=== PATIENT | female | born 2005 | race African-American/Black ===

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

== ENCOUNTER 2023-01-20 18:33 | Emergency (ER) | payer BC, SELFPAY ==
[2023-01-20 18:34] VITALS: BP 131/77; PULSE 72; RESP 16; TEMP 36.7; O2SAT 99; BMI 50.7
--- NOTE | 2023-01-20 19:22 | PC.NURSE ---
ER MD López at
[2023-01-20 19:26] VITALS: BP 128/70; PULSE 93; RESP 18; TEMP 36.7
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
== END 2023-01-20 19:44 | disposition home or self-care (01) ==
PROVIDERS: Emergency Provider Emergency Medicine; PCP Internal Medicine Adolescent Medicine
DX: R07.9 Chest pain, unspecified (principal); S16.1XXA Strain of muscle, fascia and tendon at neck level, initial encounter; M25.511 Pain in right shoulder; M25.512 Pain in left shoulder; G40.909 Epilepsy, unspecified, not intractable, without status epilepticus; V49.40XA Driver injured in collision with unspecified motor vehicles in traffic accident, initial encounter
CPT/HCPCS: 99283

== ENCOUNTER 2023-06-30 13:15 | Outpatient (RCR) | payer BC, SELFPAY ==
--- NOTE | 2023-06-30 16:41 | HMH.PTOPEV ---
PT Outpatient Evaluation Rehab PT Outpatient Evaluation Start: 06/30/23 13:20 Freq: Status: Active Protocol: Document 06/30/23 16:22 DEREK (Rec: 06/30/23 16:38 DEREK [id number]) E-signed By Vaughn Alexander, PT Outpatient Therapy Subjective History Subjective History This is the initial PT eval for Mariella Cordero, 17 yoaaf who presents with c/o chronic pain of her neck and upper shoulders for many years. It has bothered me all my life, basically. She also c/o intermittent headaches and worse pain in the afternoon, typically. She rports pain is worst with prolonged stationary position. SHe reports having an MRI performed at an outside facility, but has not been informed of her results yet. MD becerra has diagnosis of Chiari I Malformation. New diagnosis of cancer in past 12 No months? Chief Complaint Pain,Stiff Symptom Type Ache,Sharp Symptoms Relieved By Activity Prior Functional Limitations None Current Functional Limitations Sleeping,Recreation Activity Symptom Description Constant but Variable, Intermittent,Activity Dependent Level of pain today (0-10) 3 Pain scale - at its best (0-10) 1 Pain scale - at its worst (0-10) 7 Cervical Eval Palpation Cervical Muscles R Cervical Paraspinal,L Cervical Paraspinal,R Upper Trapezius,L Upper Trapezius Cervical/Thoracic Palpation Findings Tenderness Flexibility Deficits Upper Trapezius Muscle Length (R) Mild Tightness,(L) Mild Tightness Levaetor Scapulae Muscle Length (R) Mild Tightness,(L) Mild Tightness Passive Joint Mobility Cervical PIVM WNL: R OA L OA R AA L AA R C2/3 L C2/3 R C3/4 L C3/4 R C4/5 L C4/5 R C5/6 L C5/6 R C6/7 L C6/7 R C7/T1 L C7/T1 AROM Cervical Spine Extension Active Range of 0-65 Motion (degrees) Cervical Spine Flexion Active Range of 0-50 Motion (degrees) Cervical Spine Right Lateral Flexion 0-55 Active Range of Motion (degrees) Cervical Spine Left Lateral Flexion 0-55 Active Range of Motion (degrees) Cervical Spine Right Rotation Active 0-75 Range of Motion (degrees) Cervical Spine Left Rotation Active 0-75 Range of Motion (degrees) MMT Bilateral Deltoid (C5) 5 Normal Biceps Brachii Strength Grade 5 Normal Wrist Extension Strength Grade 5 Normal Triceps Brachii Strength Grade 5 Normal Wrist Flexion Strength Grade 5 Normal Extensor Pollicis Longus Strength Grade 5 Normal Finger Abduction Strength Grade 5 Normal Special Test C-Spine Foraminal Compression ([place]) Negative Left,Negative Right Test C-Spine Foraminal Distraction Test Negative C-Spine Compression Test Negative Left,Negative Right Neck Disability Index Neck Disability Index Section 1: Pain Intensity The pain is moderate at the moment Section 2: Personal Care (washing, I can look after myself dressing, etc.) normally without causing extra pain Section 3: Lifting I can lift heavy weights without extra pain Section 4: Reading I can read as much as I want to with slight pain in my neck Section 5: Headaches I have moderate headaches, which come infrequently Section 6: Concentration I can concentrate fully when I want to with no difficulty Section 7: Work I can do as much work as I want to Section 8: Driving I can drive my car as long as I want with slight pain in my neck Section 9: Sleeping I have no trouble sleeping Section 10: Recreation I am able to engage in all my recreation activities with no neck pain NDI Score 6 Outpatient Therapy Assessment Impairments Problems/Impairmments Palpation Tenderness,Impaired Range of Motion,Impaired Endurance,Impaired Household Care,Impaired Recreational Activities,Subjective C/O Pain ,Impaired Self Care/Self Management Prognosis Rehab Potential Good Clinical Impression Consistent with Diagnosis Yes Short Term Goals Number of Weeks 2 Decreased Palpation Tenderness Yes: B UT 1/4 Increase Ability to Sit Yes: > 30 min without pain Decrease Subjective C/O Pain Yes: 4/10 at worst Patient to be Ind w/ HEP Yes Fdc Goals Number of Weeks 4 Decreased Palpation Tenderness Yes: 0/4 B UT Increase Strength Yes: B periscapular mm 5/5 Improve Ability For Household Care Yes Return to Recreational Activities Yes Improve Neck Disability Index Score Yes: 0 Decrease Subjective C/O Pain Yes: 2/10 at worst Patient to be Ind w/ Advanced HEP Yes Outpatient Therapy Plan of Care Treatment Plan May Include Therapeutic Exercise Including Home Yes Exercise Program Manual Therapy Techniques Yes Neuromuscular Re-education Yes Therapeutic Activities to Return to Yes Previous Functional/Work Level ADL/Self Care Education Yes Thermal Modalities Yes Electrical Stimulation Yes Ultrasound/Phonophoresis Yes Massage Yes Eval/Re-Eval Yes Frequency Times per week 2 Duration Number of Weeks 4 Addendums This patient is a candidate for social No or vocational rehab? Patient/Guardian verbally acknowledges Yes understanding of treatment program and consents to further treatment? Patient/Guardian verbally acknowledges Yes understanding of diagnosis, prognosis and goals for treatment? Eval Complexity PT Charges 61133 - High Complexity Shoulder/Elbow Eval Shoulder Objective Measurements Elbow Objective Measurements PHYSICIAN CERTIFICATION: I certify the specified therapy services for Mariella Cordero are required, authorized, and reviewed every 30 days.
== END 2023-06-30 15:00 | disposition home or self-care (01) ==
LOC: PT 13:15
PROVIDERS: Visit Provider Internal Medicine Adolescent Medicine
DX: M54.2 Cervicalgia (principal); M79.601 Pain in right arm; G93.5 Compression of brain
CPT/HCPCS: 97163

== ENCOUNTER 2023-06-30 13:17 | Outpatient (RCR) | payer BC, SELFPAY | END 2023-06-30 15:00 | disposition home or self-care (01) | LOC: OT 13:17 | PROVIDERS: Visit Provider Internal Medicine Adolescent Medicine | DX: M79.601 Pain in right arm (principal); M79.602 Pain in left arm; M54.2 Cervicalgia; G93.5 Compression of brain | CPT/HCPCS: 97165 ==

== ENCOUNTER 2025-01-07 04:14 | Emergency (ER) | payer BC, SELFPAY ==
[2025-01-07 04:27] VITALS: BP 148/97; PULSE 98; RESP 18; TEMP 37.1; O2SAT 100; BMI 51.1
--- OUTSIDE RECORDS SUMMARY | 2025-01-07 04:29 | XMS_ITS | Clinical Summary ---
Author Organization [facility] Address [address] [place] [address] Care Team Providers Care Mechanical Door Repairer Name Role Phone Per Patient, None Primary Care Provider Unavaila ble Allergies Active Allergy Reactions Criticality Noted Date Comments Cefaclor Anxiety,Other - please document in the comment field,Unknown - Patient states they do not know rxn details Low 06/01/2016 Hyperactivity Lactose Intolerance (Gi) Unknown - Patient states they do not know rxn details Low 01/12/2018 Milk (Cow) Unknown - Patient states they do not know rxn details Low 06/24/2020 Medications albuterol 108 (90 Base) MCG/ACT inhaler Acti ve fluticasone (Flonase) 50 MCG/ACT nasal spray 1 Active levocetirizine (Xyzal) 5 MG tablet 1 Active zonisamide (Zonegran) 100 MG capsule 0 Active NON FORMULARY There is no clinical indication at this time for Mariella to have Clonazepam at school. 9 Active azelastine (Astelin) 0.1 % nasal spray 1 Active Wixela Inhub 250-50 MCG/DOSE diskus inhaler 1 Active hydrOXYzine HCl (Atarax) 25 MG tablet 1 Active lamoTRIgine (LaMICtal) 100 MG tabletIndicatio ns:Seizures (CMS/HCC) Take 1/2 tab (50mg) by mouth in the morning and 1 tab (100mg) by mouth in the evening. 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 06/22/2017 Chiari malformation type I 09/30/2016 Headache 09/30/2016 Obesity 09/30/2016 Snoring 09/30/2016 Epilepsy with both generalized and focal feature s 06/23/2016 Immunizations Immunization Administration Dates Next Due DTaP, Unspecified 10/23/2008, 5,04/29/2004,02/23,2003 Hep B, Adolescent or Pediatric 2003 Hib (PRP-OMP) 02/24/2004 Hib / Hep B 2004,2003 IPV 10/23/2008, 4,02/24/2004,12/23 Influenza, injectable, MDCK, preservative free, quadrivalent 03/31/2020 Influenza, injectable, quadr ivalent, preservative free 05/08/2019 Influenza, seasonal, injectable 06/22/2017 MMR 11/03/2007,01/20/2005 Meningococcal MCV4, Unspecified 11/20/2014 Omiro COVID-19 Vac cine (Purple Cap) 12+ 12/10/2020,11/12/2020 Tdap 11/20/2014 Varicella 11/20/2014,2004 Social History Tobacco Use Types Packs/Day Years Used Date Smoking Tobacco: Never Comments Unknown Sex and Gender Information Value Date Recorded Sex Assigned at Not on file Legal Sex Female 8:54 PM EDT Gender Identity Not on file Sexual Orientation Not on file Last Filed Vital Signs Vital Sign Reading Time Taken Comments Blood Pressure 138/80 02/27/2020 3:48 PM EDT Pulse - - Temperature - - Respiratory Rate - - Oxygen Saturation - - Inhaled Oxygen Concentration - - Weight 117 kg (258 lb 15.9 oz) 08/04/2020 1:47 P M EST Height 162.6 cm (5' 4 ) 08/04/2020 1:47 PM EST Body Mass Index 44.46 08/04/2020 1:47 PM EST Plan of Treatment Health Maintenance Due Date Last Done Comments [facility]-Depression Screening 2003 [facility]-Infant/Child/Adol SDOH Screenings 2003 HPV Vaccines (1 - 3-dose series) 10/20/2018 [facility]- SDOH Screenings 10/20/2021 [facility]-Adult SDOH Screenings 10/20/2021 [id number] Vaccine (3 - season) 2024 12/10/2020, 11/12/2020 [facility]-Pap Smear 10/20/2024 [facility]-DTaP,Tdap,and Td Vaccines (7 - Td or Tdap) 11/20/2024 11/20/2014, 10/23/2008, 01/20/2005, Additional history exists [facility]-Influenza Vaccine (#1) 02/25/202503/31, 05/08/2019, 06/22/2017 [facility]-Zoster Vaccines (1 of 2) 10/20/2053 11/20/2014, 2004 [facility]-HIB Vaccines Completed 2004, , 2003 [facility]-Hepatitis B Vaccines Completed 005, 2003, 2003 [facility]-IPV Vaccines Completed 10/23/2008, 08/2003, 02/24/2004, Additional history exists [facility]-Varicella Vaccines Completed 11/20/2014, 2004 [facility]-Hepatitis A Vaccines Aged Out No longer eligible based on patient's age to complete this topic [facility]-Pneumococcal Vaccine: Pediatrics (0 to 5 Years) and At-Risk Patients (6 to 49 Years) Aged Out No longer eligible based on patient's age to complete this topic [facility]-Rotavirus Vaccines Aged Out No lo nger eligible based on patient's age to complete this topic Insurance TIA ANKIT BORJA ANTHEM ANKIT BORJA ANTHEM Care Teams Mechanical Door Repairer Relationship Specialty Start Date End Date Per Patient, [place] [address] PCP - General 02/17/21
--- OUTSIDE RECORDS SUMMARY | 2025-01-07 04:29 | XMS_ITS | Clinical Summary ---
Author Organization [facility] Address [address] [place] [address] Phone Care Team Providers Care Dulser Name Role Phone Unavailable Primary Care Provider Unavailabl e Allergies Active Allergy Reactions Criticality Noted Date Comments Ceclor Cd Other (See Comments),Rash 08/28/2024 Lactose Intolerance (Lactase) Diarrhea 01/12/2018 Montelukast Other (See Comments) 08/28/2024 Pork Derived (Porcine) Diarrhea 08/28/2024 Ziprasidone Hcl Other (See Comments) 08/28/2024 Zonisamide Other (See Comments) 08/28/2024 Medications * This document contains information received from the source organization and may not represent a complete record from that organization. budesonide-formot Demetrius (SYMBICORT) 160-4.5 mcg/actuation Inhl HFA Aerosol Inhaler INHALE TWO PUFFS BY MOUTH TWICE DAILY DIRECTED; RINSE MOUTH AFTER EACH USE Active albuterol (PROVENTIL) 2.5 mg /3 mL (0.083 %) Inhl Solution for Nebulization INHALE 1 VIAL USING NEBULIZER FIVE TIMES A DAY DIRECTED 4 Active azelastine (ASTELIN) 137 mcg (0.1 %) Nasl [place], Non-Aerosol SPRAY 1 TO 2 SPRAYS IN EACH NOSTRIL TWICE DAILY NEEDED Active levocetirizine (XYZAL) 5 mg Oral Tablet Take 5 mg by mouth daily. Active fluticasone propionate (FLONASE) 50 mcg/actuation Nasl [place], Suspension 2 Sprays in each nostril daily. Active hydrOXYzine (ATARAX) 25 mg Oral Tablet 1 Active folic acid (FOLVITE) 1 mg Oral Tablet Take 1 Tablet by mouth daily. 90 Tablet 1 5 Active lamoTRIgine (LAMICTAL) 100 mg Oral Tablet Take 1 Tablet by mouth 2 times daily. 180 Tablet 1 5 Active Active Problems Problem Noted Date Diagnosed Date Recurrent major depressive disorder, in full rem ission 08/28/2024 MARA (generalized anxiety disorder) 08/28/2024 Borderline personality disorder 08/28/2024 PTSD (post-traumatic stress disorder) 08/28/2024 Flashbacks 08/28/2024 Medical History Medical History Date Comments Asthma Seizures (HCC) Social History Tobacco Use Types Packs/Day Years Used Date Smoking Tobacco: Never Smokeless Tobacco: Never Tobacco Cessation:Counseling Given: Not Answered Comments Unknown Sex and Gender Information Value Date Recorded Sex Assigned at Not on file Legal Sex Female 12:24 PM EST Gender Identity Not on file Sexual Orientation Not on file Obstetrics History Plan of Treatment Health Maintenance Due Date Last Done Comments Annual Wellness Exam 10/20/2006 HPV (1 - 3-dose series) 10/20/2018 Meningococcal B Vaccine (1 of 2 - Standard) 2019 COVID-19 Vaccine (2 - season) 2024 12/10/2020 Cervical Cancer Screening 10/20/2024 Pap Smear 10/20/2024 DTaP/TDaP/Td (7 - Td or Tdap) 11/20/2024 11/20/2014, 10/23/2008, 01/20/2005, Additional history exists Influenza Vaccine (#1) 2025 , 03/31/2020, 05/08/2019, Additional history exists Hepatitis B Vaccine Completed 2004, 2003, 2003 Pneumococcal Vaccine 0-49 Aged Out No longer eligible based on patient's age to complete this topic Insurance TIA PPO
--- OUTSIDE RECORDS SUMMARY | 2025-01-07 04:29 | XMS_ITS | Encounter Summary ---
Author Organization [facility] Address [address] [place] [address] Care Team Providers Care Coal Carrier Name Role Phone Per Patient, None Primary Care Provider Unavaila ble Reason for Referral * Consultation (Routine) - Closed Specialty Diagnoses / Procedures Referred By Nida sarabia Referred To Contact Neurology Diagnoses Chiari malformation type I (CMS/HCC) Chronic daily headache Epilepsy with both generalized and focal features (CMS/HCC) Bebo Klein MD [address] [facility] [address] [address] Phone: tel: fax: Referral ID Status Reason Start Date Expiration Date V isits Requested Visits Authorized [id number] Closed Specialty Services Required 06/30/2023 12/29/2024 1 1 Encounter Details Date Type Department Care Team (Latest Contact Info) Description 06/30/2023 Community [facility] [address] [place] [address] Bebo Klein MD [facility] [address] [address] Chiari malformation type I (CMS/HCC) (Primary Dx); Chronic daily headache; Epilepsy with both generalized and focal features (CMS/HCC) Social History Tobacco Use Types Packs/Day Years Used Date Smoking Tobacco: Never Comments Unknown Sex and Gender Information Value Date Recorded Sex Assigned at Not on file Legal Sex Female 8:54 PM EDT Gender Identity Not on file Sexual Orientation Not on file documented as of this encounter Plan of Treatment Scheduled Referrals Name Type Priority Associated Diagnoses Orde r Schedule Ambulatory referral to Neurology Outpatient Referral Routine Chiari malformation type I (CMS/HCC) Chronic daily headache Epilepsy with both generalized and focal features (CMS/HCC) Ordered: 06/30/2023 documented as of this encounter Visit Diagnoses Diagnosis Chiari malformation type I (CMS/HCC)- Primary Compression of brain Chronic daily headache Headache Epilepsy with both generalized and focal features (CMS/HCC) documented in this encounter Care Teams Coal Carrier Relationship Specialty Start Date End Date Per Patient, [place] [address] PCP - General 02/17/21 documented as of this encounter
--- NOTE | 2025-01-07 06:00 | CT_ITS ---
FINAL REPORT CLINICAL HISTORY: abn LUE/face movements and tingling hx sz COMPARISON: none FINDINGS: CTA HEAD TECHNIQUE: Thin section axial CT with contrast with 3D MIP reconstruction This study was performed with techniques to keep radiation doses as low as reasonably achievable, (ALARA). Individualized dose reduction techniques using automated exposure control or adjustment of mA and/or kV according to the patient''s size were employed. FINDINGS: No aneurysm is seen. Major intracranial vessels are patent without significant stenosis. . IMPRESSION: Unremarkable This study was performed using automated techniques to achieve radiation exposure as low as reasonably achievable Reviewed, Interpreted and Dictated by Aniya Conn MD Transcribed by Diane Nathan Authenticated and [facility]
--- NOTE | 2025-01-07 06:00 | CT_ITS ---
FINAL REPORT TECHNIQUE: Noncontrast exam This study was performed with techniques to keep radiation doses as low as reasonably achievable, (ALARA). Individualized dose reduction techniques using automated exposure control or adjustment of mA and/or kV according to the patient''s size were employed. CLINICAL HISTORY: episode of L abn facial movement, tingling COMPARISON: none FINDINGS: No abnormal density is seen. Ventricles are normal. There is no hemorrhage. No mass effect is seen. Bone windows show no evidence of fracture. IMPRESSION: No acute findings Reviewed, Interpreted and Dictated by Aniya Conn MD Transcribed by Diane Nathan Authenticated and [facility]
--- NOTE | 2025-01-07 06:00 | CT_ITS ---
FINAL REPORT CLINICAL HISTORY: abn LUE/face movements and tingling hx sz COMPARISON: none FINDINGS: CT NECK ANGIO, WITHOUT AND WITH CONTRAST TECHNIQUE: Thin section axial CT with contrast with multiplanar 3D MIP reconstruction. This study was performed with techniques to keep radiation doses as low as reasonably achievable, (ALARA). Individualized dose reduction techniques using automated exposure control or adjustment of mA and/or kV according to the patient''s size were employed. NASCET criteria and technique was utilized during interpretation. FINDINGS: Aortic arch: Arch shows no significant narrowing. Great vessel origins are widely patent. Right carotid: No significant stenosis is seen of the cervical common or internal carotid artery. Left carotid: No significant stenosis is seen of the cervical common or internal carotid artery. Vertebrals: Left vertebral artery is dominant. No significant stenosis is present. IMPRESSION: No significant stenosis of the cervical carotid arteries This study was performed using automated techniques to achieve radiation exposure as low as reasonably Reviewed, Interpreted and Dictated by Aniya Conn MD Transcribed by Diane Nathan Authenticated and [facility]
[2025-01-07] MEDS: LACTATED RINGERS 1000ML 1,000 ML 999 ML IV (06:13)
[2025-01-07 06:25] LABS: Microscopic, Urine URINE MICROSCOPIC (MICROSCOPIC)
[2025-01-07 06:27] LABS: Hematocrit 38.0 % (37.0-47.0); Hemoglobin 12.0 g/dL (12.2-16.2); Immature Granulocytes % 0.2 %; Mean Corpuscular HGB Conc 31.6 g/dL (31.8-35.4); Mean Corpuscular Hemoglobin 26.3 pg (27.0-31.2); Mean Corpuscular Volume 83.2 fl (81-99); Nucleated Red Blood Cells % 0 %; Platelet Count 391 K/mm3 (142-424); Red Blood Count 4.57 M/mm3 (4.20-5.40); Red Cell Distribution Width-SD 42.9 fL; White Blood Count 8.5 K/mm3 (4.8-10.8)
[2025-01-07 06:33] LABS: Chloride 99 mmol/L (98-107)
[2025-01-07 06:34] LABS: Albumin Level 4.5 g/dl (3.5-5.0); Potassium 3.8 mmoL/L (3.5-5.1); Sodium 139 mmol/L (136-145)
[2025-01-07 06:36] LABS: Bilirubin,Urine Negative (Negative); Color,Urine YELLOW (Yellow); Glucose,Urine (UA) Negative (Negative); Ketones,Urine Negative (Negative); Leukocyte Esterase,Urine Negative (Negative); PH,Urine 6.5 (5.0-8.5); Protein,Urine Negative (Negative); Specific Gravity, Urine 1.025 (1.005-1.030); Urobilinogen,Urine 0.2 EU/dl (0.2)
[2025-01-07 06:37] LABS: Alanine Aminotransferase 17 U/L (12-78); Albumin/Globulin Ratio 1.4 (1.1-1.8); Alkaline Phosphatase 65 U/L (38-126); Anion Gap 11.8 mEq/L (5-15); Aspartate Amino Transferase 30 U/L (14-36); Blood Urea Nitrogen 14 mg/dl (7-17); Calcium 9.4 mg/dl (8.4-10.2); Carbon Dioxide 32 mmol/L (22.0-30.0); Creatinine Clearance Estimated 96 mL/min (50-200); Creatinine,Serum 0.80 mg/dl (0.52-1.04); Estimated Glomerular Filt Rate 91 ml/min (>60); GFR (African American) 110 ML/MIN (>60); Globulin 3.3 g/dL (1.3-3.2); Glucose 92 mg/dl (74-100); Total Protein,Serum 7.8 g/dl (6.3-8.2)
[2025-01-07 06:45] LABS: Bilirubin,Total 0.1 mg/dl (0.2-1.3)
[2025-01-07 06:51] LABS: Amphetamine/Metha Screen,Urine Negative ng/ml (<1000)
[2025-01-07 06:52] LABS: Barbiturates Screen,Urine Negative ng/ml (<200); Benzodiazepines Screen,Urine Negative ng/ml (<200); Troponin I < 0.01 ng/ml (0.00-0.034)
[2025-01-07 06:54] LABS: Methadone Screen,Urine Negative ng/ml (<300)
[2025-01-07 06:55] LABS: Opiate Screen,Urine Negative ng/ml (<300); Phencyclidine Screen,Urine Negative ng/ml (<25)
[2025-01-07 07:00] VITALS: BP 131/78; PULSE 95; RESP 18; O2SAT 100
[2025-01-07 07:05] LABS: HCG Qualitative, Serum Negative (Negative)
[2025-01-07 07:07] LABS: Lactate Venous 1.2 mmol/L (0.4-2.0); VBG HCO3 29.7 mmol/L (23-30); VBG PH 7.35 mmol/L (7.31-7.41); VBG PO2 34.3 mmol/L (28-40)
[2025-01-07 07:11] LABS: WBC,Urine Occasional #/hpf (0-3)
[2025-01-07 07:12] LABS: VBG PCO2 55.4 mmol/L (35-51)
[2025-01-07 07:12] LABS: Bacteria,Urine Trace /lpf
[2025-01-07] MEDS: IOPAMIDOL-370 (76%);100ML BOTTLE 80 ML IV (07:16)
[2025-01-07] MEDS: SODIUM CHLORIDE 0.9% 10ML SYR (RAD ONLY) 10 ML IV (07:16)
[2025-01-07] MEDS: 0.9 % SODIUM CHLORIDE 50 ML VIAL IV (07:16)
--- NOTE | 2025-01-07 07:17 | ED_ITS ---
Discharge Plan Disposition Patient Disposition: Home, Self-Care Condition: Good Prescriptions Prescriptions: No Action albuterol sulfate 90 mcg/actuation HFA aerosol inhaler 90 mcg INHALATION NEEDED PRN (Reason: asthma) fluticasone propionate [24 Hour Allergy Relief] 50 mcg/actuation spray,suspension 50 mcg INTRANASAL NEEDED PRN (Reason: asthma) Patient Comments: [place] 2 spray into both nostrils once a day budesonide-formoterol 160-4.5 mcg/actuation HFA aerosol inhaler 4.5 inh INHALATION NEEDED PRN (Reason: asthma) levocetirizine 5 mg tablet 5 mg PO DAILY Patient Comments: Take 1 tablet by mouth every evening Referrals Follow up/Referrals: Provider,Referral, MD [Primary Care Provider, Medical] - See instructions Activity Restrictions/Add. Instructions Additional Instructions/Restrictions: These follow-up with your primary care provider today or tomorrow and have them get you a referral to neurology. If you have any acute or worsening neurologic symptoms such as numbness, weakness if you have any other symptoms that are consistent or seizure-like in the next 24 hours then please return to the emergency department. Continue taking your medications as prescribed. Avoid any triggers like alcohol, smoking new stressors. Clinical Impressions Clinical Impression: Arm paresthesia, left Print Language Print Language: Indian Discharge ED Provider: Vira Jorge General Adult HPI <Vira Jorge MD - Last Filed: 01/07/25 07:26> General Chief complaint: Extremity Problem,Nontraumatic Stated complaint: epileptic, tingling in face, shoulder, L arm spasm Time Seen by Provider: 01/07/25 05:43 Mode of Arrival: Ambulatory Source of Information: Patient Description of Symptoms (Recalled from ER Triage Doc. by RN): pt reports l arm pain at work, starting around 0330. pt states numbness on left side with twitching, and l facial numbness. pt is alert and ambulated into room. History of Present Illness HPI narrative: 19-year-old female presents to the ER reporting left arm and left facial abnormal movements with tingling. Patient reported to me her symptoms started around 3:30 AM and she came to the ER afterwards. She states they spontaneously started, only lasted a few seconds, then spontaneously resolved. Patient ambulated independently into the ER. Patient reports that as a child she had grand mal seizures and has been on lamotrigine for a very long time. She has not had any seizures since middle school. She reports she is still on lamotrigine for seizures and mood . She has essentially been discharged from neurology clinic as of a few years ago according to patient and family. She does admit that her weight has gone up since her last medication adjustment that she has been on the same dose of lamotrigine with no abnormal symptoms in many years. 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 She admits she has been having heavy caffeine use but not nearly as much today. Patient currently has no numbness, tingling, weakness, chest pain, dizziness, abdominal pain, nausea, vomiting, diarrhea, or any other associated symptoms. She states she recently finished her last period. Mom is at bedside and helps provide history. Patient denies any alcohol, tobacco, or illicit drug use. Related Data Home Medications ?Medication ?Instructions ?Recorded ?Confirmed albuterol sulfate 90 mcg/actuation 90 mcg inhalation A S NEEDED PRN 09/20/22 10/27/22 aerosol inhaler asthma budesonide-formoterol HFA 160 4.5 inh inhalation NE EDED PRN 09/20/22 10/27/22 mcg-4.5 mcg/actuation aerosol asthma inhaler fluticasone propionate 50 50 mcg intranasal NEEDED PRN 09/20/22 10/27/22 mcg/actuation nasal asthma spray,suspension (24 Hour Allergy Relief) levocetirizine 5 mg tablet 5 mg PO DAILY allergies 10/27/22 Allergies Allergy/AdvReac Type Severity Reaction Status Date / Time cefaclor (From CECLOR) Allergy Unknown Verified 09/20/22 11:59 ziprasidone (From Geodon) Allergy Verified 01/20/23 18:51 PFSH <Vira Jorge MD - Last Filed: 01/07/25 07:26> PFS Disclaimer: The information contained in this section may have been updated after the patient was seen, as this information can be updated by other users. Social History (Updated 09/20/22 @ 13:56 by Michael Koehler MD) Smoking Status: Never smoker alcohol intake: never current occupational status: student Travel in the last 8 weeks?: Inside the [place] <Vira Jorge MD - Last Filed: 01/07/25 07:26> ROS Obtained: Yes Systems reviewed as appropriate & no additional complaints except as documented Per HPI Physical Exam <Vira Jorge MD - Last Filed: 01/07/25 07:26> General General appearance: alert, in no apparent distress and obese Head Head exam: atraumatic and normocephalic Eye Eye exam: Present PERRL and EOMI ENT ENT exam: Present mucous membranes moist Neck Neck exam: Present normal inspection and full ROM Chest Chest inspection: Present symmetric chest wall rise Respiratory Respiratory exam: Present normal lung sounds bilaterally; Absent respiratory distress, wheezes or stridor Cardiovascular Cardiovascular exam: Present regular rate and normal rhythm Abdominal Exam Abdominal exam: Present soft; Absent distention or tenderness Extremities Exam Extremities exam: Present full ROM Neurological Exam Neurological exam: Present alert, oriented X3, CN II-XII intact, normal gait and other (NIH 0); Absent motor sensory deficit (Patient had reported left facial numbness but her sensation was actually intact on exam including to temperature, pressure, light touch, pain.) Psychiatric Psychiatric exam: Present normal affect and normal mood Skin Skin exam: Present warm and dry Medical Decision Making <Vira Jorge MD - Last Filed: 01/07/25 07:26> Medical Records Medical records reviewed: Yes I reviewed the patient's medical records. Screening: Per USPSTF and CDC recommendations, given the prevalence of disease in our region, it is our hospital?s policy to screen for HIV and viral Hepatitis for all patients aged 18 and over and those with ongoing risk factors. Karl Inquiry Pt receiving controlled substance: No Vital Signs: 01/07/25 04:27 01/07/25 07:00 01/07/25 07:33 Temperature 98.8 F Temperature Source Oral Pulse Rate 95 H 89 Pulse Rate [Right Radial] 98 H Respiratory Rate 18 18 Blood Pressure 131/78 127/68 Blood Pressure [Right Arm] 148/97 H Blood Pressure Mean 90 87 Blood Pressure Mean [Right Arm] 114 Blood Pressure Source Blood Pressure Position Blood Pressure Position [Right Arm] Supine 02 Sat by Pulse Oximetry 100 100 100 Oxygen Delivery Method Room Air 01/07/25 08:01 01/07/25 08:30 01/07/25 09:05 Temperature 98.3 F Temperature Source Oral Pulse Rate 94 H 89 79 Pulse Rate [Right Radial] Respiratory Rate 18 16 16 Blood Pressure 120/78 117/81 118/74 Blood Pressure [Right Arm] Blood Pressure Mean 93 92 Blood Pressure Mean [Right Arm] Blood Pressure Source Automatic Cuff Blood Pressure Position Supine Blood Pressure Position [Right Arm] 02 Sat by Pulse Oximetry 99 100 Oxygen Delivery Method Room Air Lab Data Lab Results 01/07/25 06:15: WBC 8.5, RBC 4.57, Hgb 12.0 L, Hct 38.0, MCV 83.2, MCH 26.3 L, M CHC 31.6 L, RDW 14.2, Plt Count 391, MPV 9.4, Neut % (Auto) 66.7, Lymph % (Auto) 23.5, Mckenzie % (Auto) 8.5, Eos % (Auto) 0.7, Baso % (Auto) 0.4, Neut # (Auto) 5.7, Lymph # (Auto) 2.0, Mckenzie # (Auto) 0.7, Eos # (Auto) 0.1, Baso # (Auto) 0.0, Sodium 139, Potassium 3.8, Chloride 99, Carbon Dioxide 32 H, Anion Gap 11.8, BUN 14, Creatinine 0.80, Estimated Creat Clear 96, Estimated GFR 91, Est GFR ( Amer) 110, Glucose 92, Calcium 9.4, Total Bilirubin 0.1 L, AST 30, ALT 17, Alkaline Phosphatase 65, Troponin I < 0.01, Total Protein 7.8, Albumin 4.5, Globulin 3.3 H, Albumin/Globulin Ratio 1.4, Serum HCG, Qual Negative, Urine Color Yellow, Urine Appearance Clear, Urine pH 6.5, Ur Specific [place] 1.025, Urine Protein Negative, Urine Glucose (UA) Negative, Urine Ketones Negative, Urine Blood Negative, Urine Nitrate Negative, Urine Bilirubin Negative, Urine Urobilinogen 0.2, Ur Leukocyte Esterase Negative, Urine RBC None, Urine WBC Occasional, Ur Squamous Epith Cells 5-10, Urine Bacteria Trace, Urine Opiates Screen Negative, Urine Methadone Screen Negative, Ur Barbituates Screen Negative, Ur Phencyclidine Scrn Negative, Ur Amphetamines Screen Negative, U Benzodiazepines Scrn Negative, Urine Cocaine Screen Negative, U Marijuana (THC) Screen Negative 01/07/25 07:00: Lactate 0.9 01/07/25 07:03: VBG pH 7.35, VBG pCO2 55.4 H, VBG pO2 34.3, VBG HCO3 29.7, VBG Total CO2 31.4 H, VBG O2 Saturation 62.7, VBG Base Excess 4.0 H, VBG Lactic Acid 1.2 01/07/25 06:15 01/07/25 06:15 Orders (Tests/Meds): ED MEDICATIONS Discontinued Medications Generic Name Dose Route Start Last Admin Trade Name Freq PRN Reason Stop Dose Admin Lactated Ringer's 1,000 mls @ 999 mls/hr 01/07/25 06:02 01/07/25 06:13 Lactated Ringer's 1000 Ml Bag IV 01/07/25 07:02 999 mls/hr .Q1H1M ONE Administration Iopamidol 80 ml 01/07/25 07:15 01/07/25 07:16 Iopamidol-370 (76%);100ml Bottle IV 01/07/25 07:16 80 ml ONCE ONE Administration Sodium Chloride 50 ml 01/07/25 07:15 01/07/25 07:16 0.9 % Sodium Chloride 50 Ml Vial IV 01/07/25 07:16 50 ml ONCE ONE Administration Sodium Chloride 10 ml 01/07/25 07:15 01/07/25 07:16 Sodium Chloride 0.9% 10ml Syr (Rad Only) IV 01/07/25 07:16 10 ml ONCE ONE Administration ORDERS Category Date Time Status CT angio head Stat Cat Scan 01/07/25 06:[address] angio neck Stat Cat Scan 01/07/25 06:[address] head/brain wo con Stat Cat Scan 01/07/25 06:00 Completed CBC w/Auto Diff [Complete Blood Count Auto Diff] Stat Lab 01/07/25 06:15 Completed CMP [Comprehensive Metabolic Panel] Stat Lab 01/07/25 06:15 Completed HCG Qualitative, Serum Stat Lab 01/07/25 06:15 Completed Lactic Acid Stat Lab 01/07/25 07:00 Completed Trop I [Troponin I] Stat Lab 01/07/25 06:15 Completed UDS [Drug Screen,Urine] Stat Lab 01/07/25 06:15 Completed Urinalysis and Microscopic Stat Lab 01/07/25 06:15 Completed VBG [Venous Blood Gas] Stat RT 01/07/25 07:03 Completed Medical Decision Narrative: In summary, this 19-year-old female with history of seizure presents to the emergency department today with sudden, brief abnormal movements of the left upper extremity and left face with associated tingling sensation. On initial evaluation patient is hemodynamically stable, afebrile, GCS 15 with no neurologic deficits appreciated, patient feels like the left side of her face is numb near her jaw but does not actually have deficits appreciated on exam. NIH 0. Patient was not made a stroke alert. I did examine the patient's ears in case she had a Bear's palsy developing, though I do not appreciate evidence of any facial droop. Tympanic membrane's normal bilaterally. Benign abdomen, full strength throughout, independently ambulatory. Patient gets very anxious when discussing her seizures stating she does not want to go through all that testing again . Differential diagnosis includes but is not limited to focal seizure, muscle spasm, electrolyte abnormality, I did consider the possibility of intracranial bleed, mass, stroke, though I really have extremely low suspicions for these, especially for stroke since patient had abnormal movements not paralysis with her symptoms. I have high suspicion for focal seizure/breakthrough seizure because patient is not on a regular sleep schedule and has had significant changes to her daily routine recently that could lower the seizure threshold. Ruling out the most morbid conditions drove my assessment. Based on these concerns, serum labs, EKG, CT imaging including angiography, urine studies were ordered for the patient. No medications initially administered in the ER. Labs personally reviewed demonstrate no leukocytosis, slight anemia with hemoglobin 12.0 nonspecific nonactionable at this time, normal platelets, VBG with normal pH, normal lactic, mild hypercarbia but patient has no symptoms of this, CMP nonactionable, initial troponin undetectably low less than 0.01, hCG negative, UA negative for findings of infection, UDS negative. Patient has remained stable with no acute abnormalities. No repeat episodes while in the ER. No neurologic deficits. She was handed off to Dr. Pineda in stable condition for continued management pending radiology studies, EKG, and additional labs. <Holly Pineda, DO - Last Filed: 01/07/25 17:05> Vital Signs: 01/07/25 04:27 01/07/25 07:00 01/07/25 07:33 Temperature 98.8 F Temperature Source Oral Pulse Rate 95 H 89 Pulse Rate [Right Radial] 98 H Respiratory Rate 18 18 Blood Pressure 131/78 127/68 Blood Pressure [Right Arm] 148/97 H Blood Pressure Mean 90 87 Blood Pressure Mean [Right Arm] 114 Blood Pressure Source Blood Pressure Position Blood Pressure Position [Right Arm] Supine 02 Sat by Pulse Oximetry 100 100 100 Oxygen Delivery Method Room Air 01/07/25 08:01 01/07/25 08:30 01/07/25 09:05 Temperature 98.3 F Temperature Source Oral Pulse Rate 94 H 89 79 Pulse Rate [Right Radial] Respiratory Rate 18 16 16 Blood Pressure 120/78 117/81 118/74 Blood Pressure [Right Arm] Blood Pressure Mean 93 92 Blood Pressure Mean [Right Arm] Blood Pressure Source Automatic Cuff Blood Pressure Position Supine Blood Pressure Position [Right Arm] 02 Sat by Pulse Oximetry 99 100 Oxygen Delivery Method Room Air Lab Data Lab Results 01/07/25 06:15: WBC 8.5, RBC 4.57, Hgb 12.0 L, Hct 38.0, MCV 83.2, MCH 26.3 L, M CHC 31.6 L, RDW 14.2, Plt Count 391, MPV 9.4, Neut % (Auto) 66.7, Lymph % (Auto) 23.5, Mckenzie % (Auto) 8.5, Eos % (Auto) 0.7, Baso % (Auto) 0.4, Neut # (Auto) 5.7, Lymph # (Auto) 2.0, Mckenzie # (Auto) 0.7, Eos # (Auto) 0.1, Baso # (Auto) 0.0, Sodium 139, Potassium 3.8, Chloride 99, Carbon Dioxide 32 H, Anion Gap 11.8, BUN 14, Creatinine 0.80, Estimated Creat Clear 96, Estimated GFR 91, Est GFR ( Amer) 110, Glucose 92, Calcium 9.4, Total Bilirubin 0.1 L, AST 30, ALT 17, Alkaline Phosphatase 65, Troponin I < 0.01, Total Protein 7.8, Albumin 4.5, Globulin 3.3 H, Albumin/Globulin Ratio 1.4, Serum HCG, Qual Negative, Urine Color Yellow, Urine Appearance Clear, Urine pH 6.5, Ur Specific [place] 1.025, Urine Protein Negative, Urine Glucose (UA) Negative, Urine Ketones Negative, Urine Blood Negative, Urine Nitrate Negative, Urine Bilirubin Negative, Urine Urobilinogen 0.2, Ur Leukocyte Esterase Negative, Urine RBC None, Urine WBC Occasional, Ur Squamous Epith Cells 5-10, Urine Bacteria Trace, Urine Opiates Screen Negative, Urine Methadone Screen Negative, Ur Barbituates Screen Negative, Ur Phencyclidine Scrn Negative, Ur Amphetamines Screen Negative, U Benzodiazepines Scrn Negative, Urine Cocaine Screen Negative, U Marijuana (THC) Screen Negative 01/07/25 07:00: Lactate 0.9 01/07/25 07:03: VBG pH 7.35, VBG pCO2 55.4 H, VBG pO2 34.3, VBG HCO3 29.7, VBG Total CO2 31.4 H, VBG O2 Saturation 62.7, VBG Base Excess 4.0 H, VBG Lactic Acid 1.2 Orders (Tests/Meds): ED MEDICATIONS Discontinued Medications Generic Name Dose Route Start Last Admin Trade Name Freq PRN Reason Stop Dose Admin Lactated Ringer's 1,000 mls @ 999 mls/hr 01/07/25 06:02 01/07/25 06:13 Lactated Ringer's 1000 Ml Bag IV 01/07/25 07:02 999 mls/hr .Q1H1M ONE Administration Iopamidol 80 ml 01/07/25 07:15 01/07/25 07:16 Iopamidol-370 (76%);100ml Bottle IV 01/07/25 07:16 80 ml ONCE ONE Administration Sodium Chloride 50 ml 01/07/25 07:15 01/07/25 07:16 0.9 % Sodium Chloride 50 Ml Vial IV 01/07/25 07:16 50 ml ONCE ONE Administration Sodium Chloride 10 ml 01/07/25 07:15 01/07/25 07:16 Sodium Chloride 0.9% 10ml Syr (Rad Only) IV 01/07/25 07:16 10 ml ONCE ONE Administration ORDERS Category Date Time Status CT angio head Stat Cat Scan 01/07/25 06:[address] angio neck Stat Cat Scan 01/07/25 06:[address] head/brain wo con Stat Cat Scan 01/07/25 06:00 Completed CBC w/Auto Diff [Complete Blood Count Auto Diff] Stat Lab 01/07/25 06:15 Completed CMP [Comprehensive Metabolic Panel] Stat Lab 01/07/25 06:15 Completed HCG Qualitative, Serum Stat Lab 01/07/25 06:15 Completed Lactic Acid Stat Lab 01/07/25 07:00 Completed Trop I [Troponin I] Stat Lab 01/07/25 06:15 Completed UDS [Drug Screen,Urine] Stat Lab 01/07/25 06:15 Completed Urinalysis and Microscopic Stat Lab 01/07/25 06:15 Completed VBG [Venous Blood Gas] Stat RT 01/07/25 07:03 Completed ECG Data Tracing #1: Normal sinus rhythm without acute ST or T wave changes concerning for ischemia. Medical Decision Narrative: In summary, this 19-year-old female with history of seizure presents to the emergency department today with sudden, brief abnormal movements of the left upper extremity and left face with associated tingling sensation. On initial evaluation patient is hemodynamically stable, afebrile, GCS 15 with no neurologic deficits appreciated, patient feels like the left side of her face is numb near her jaw but does not actually have deficits appreciated on exam. NIH 0. Patient was not made a stroke alert. I did examine the patient's ears in case she had a Bear's palsy developing, though I do not appreciate evidence of any facial droop. Tympanic membrane's normal bilaterally. Benign abdomen, full strength throughout, independently ambulatory. Patient gets very anxious when discussing her seizures stating she does not want to go through all that testing again . Differential diagnosis includes but is not limited to focal seizure, muscle spasm, electrolyte abnormality, I did consider the possibility of intracranial bleed, mass, stroke, though I really have extremely low suspicions for these, especially for stroke since patient had abnormal movements not paralysis with her symptoms. I have high suspicion for focal seizure/breakthrough seizure because patient is not on a regular sleep schedule and has had significant changes to her daily routine recently that could lower the seizure threshold. Ruling out the most morbid conditions drove my assessment. Based on these concerns, serum labs, EKG, CT imaging including angiography, urine studies were ordered for the patient. No medications initially administered in the ER. Labs personally reviewed demonstrate no leukocytosis, slight anemia with hemoglobin 12.0 nonspecific nonactionable at this time, normal platelets, VBG with normal pH, normal lactic, mild hypercarbia but patient has no symptoms of this, CMP nonactionable, initial troponin undetectably low less than 0.01, hCG negative, UA negative for findings of infection, UDS negative. Patient has remained stable with no acute abnormalities. No repeat episodes while in the ER. No neurologic deficits. She was handed off to Dr. Pineda in stable condition for continued management pending radiology studies, EKG, and additional labs. Holly Pineda, DO I took over for the care of this patient, on my reevaluation, patient was resting comfortably. Patient CT head, CTA head and neck were reviewed and interpreted by myself and showed no acute pathology. Patient's exam continued to be nonfocal in nature. I discussed that patient's symptoms could be consistent with a seizure I recommended the patient follow-up with her primary care provider in the next day or 2 to get a referral for neurology. I recommended the patient continue her seizure medications as prescribed. I discussed triggers with the patient and to avoid as many as possible. Return precautions were discussed and patient was otherwise discharged home in stable condition. Critical Care <Vira Jorge MD - Last Filed: 01/07/25 07:26> Critical Care Time Critical Care Time: No
--- NOTE | 2025-01-07 07:26 | ECG_ITS ---
APPROVED REPORT Exam: Resting ECG HR:96 bpm ECG Measurements Heart Rate 96 AXES ID 159 P 45 QRSd 94 QRS 51 QT 354 T 46 QTc 408 Conclusion SINUS RHYTHM POSSIBLE RIGHT VENTRICULAR CONDUCTION DELAY [RSR (QR) IN V1/V2] No STEMI Electronically signed by : JENNI UMANA, 01/07/2025 23:03:10
--- NOTE | 2025-01-07 07:29 | PC.NURSE ---
Performed EKG due from 0600 prior to 0700 shift change
[2025-01-07 07:33] VITALS: BP 127/68; PULSE 89; O2SAT 100
--- NOTE | 2025-01-07 07:34 | PC.NURSE ---
upon review of orders and receiving report on pt, seizure pads placed on pt due to seizure concern.
--- NOTE | 2025-01-07 07:35 | PC.NURSE ---
seizure pads placed on bed
[2025-01-07 08:01] VITALS: BP 120/78; PULSE 94; RESP 18; O2SAT 99
[2025-01-07 08:30] VITALS: BP 117/81; PULSE 89; RESP 16; O2SAT 100
[2025-01-07 09:05] VITALS: BP 118/74; PULSE 79; RESP 16; TEMP 36.8; O2SAT 98
== END 2025-01-07 09:09 | disposition home or self-care (01) ==
PROVIDERS: Emergency Provider Emergency Medicine
DX: M79.601 Pain in right arm (principal); R20.2 Paresthesia of skin; G40.909 Epilepsy, unspecified, not intractable, without status epilepticus
CPT/HCPCS: 70450; 70496; 70498; 80053; 80307; 81001; 82803; 83605; 84484; 84703; 85025; 93005; 96360; 99285; J7120; Q9967

== ENCOUNTER 2025-02-05 11:11 | Outpatient (CLI) | payer BC, SELFPAY ==
--- OUTSIDE RECORDS SUMMARY | 2025-02-05 11:15 | XMS_ITS | Encounter Summary ---
Author Organization [employer] ([place], [place], [place], [place]) Address [address] [place] [address] Care Team Providers Care Fighter Pilot Name Role Phone Unavailable Primary Care Provider Unavailabl e Reason for Referral * Other (Routine) - Authorized Specialty Diagnoses / Procedures Referred By Contfrancisco t Referred To Contact Diagnoses Seizure (HCC) Procedures EEG - NOT in office [facility] [address] [place] [address] Phone: tel: [facility] Referrals [address] [place] [address] Phone: tel: fax: Referral ID Status Reason Start Date Expiration Date V isits Requested Visits Authorized [id number] Authorized 02/06/2025 02/06/2026 1 1 Encounter Details Date Type Department Care Team (Late st Contact Info) Description 02/05/2025 Outside Orders [facility] Neurology [address] [place] [address] [address] [place] [address] [address] Seizure (HCC) (Primary Dx) Social History Tobacco Use Types Packs/Day Years Used Date Smoking Tobacco: Never Assessed Comments Unknown Sex and Gender Information Value Date Recorded Sex Assigned at Not on file Legal Sex Female 6:55 AM CDT Gender Identity Not on file Sexual Orientation Not on file documented as of this encounter Plan of Treatment Upcoming Encounters Date Type Department Care Team (Late st Contact Info) Description 02/07/2025 9:00 AM EDT Appointment [facility] Neurodiagnostic Services [address] [place] [address] Scheduled Orders Name Type Priority Associated Diagnoses Orde r Schedule EEG - NOT in office Neurology Routine Seizure (HCC) Expected: 02/06/2025, Expires: 08/08/2025 documented as of this encounter Visit Diagnoses Diagnosis Seizure (HCC)- Primary Other convulsions documented in this encounter
--- OUTSIDE RECORDS SUMMARY | 2025-02-05 11:15 | XMS_ITS | Clinical Summary ---
Author Organization [employer] ([place], [place], [place], [place]) Address [address] [place] [address] Care Team Providers Care Websphere Administrator Name Role Phone Unavailable Primary Care Provider Unavailabl e Encounters Date Type Department Care Team Description 02/05/2025 Outside Orders [facility] Neurology [address] [facility] [address] [place] [address] [facility] Seizure (HCC) (Primary Dx) from Last 3 Months Social History Tobacco Use Types Packs/Day Years Used Date Smoking Tobacco: Never Assessed Comments Unknown Sex and Gender Information Value Date Recorded Sex Assigned at Not on file Legal Sex Female 6:55 AM CDT Gender Identity Not on file Sexual Orientation Not on file Plan of Treatment Upcoming Encounters Date Type Department Care Team (Late st Contact Info) Description 02/07/2025 9:00 AM EDT Appointment [facility] Neurodiagnostic Services [address] [place] [id number] Health Maintenance Due Date Last Done Comments Depression Screening (12+) 2015 Tobacco Cessation Counseling and Screening (12+) 2015 Meningococcal B Vaccine (1 of 2 - Standard) 2019 COVID-19 VACCINE (3 - season) 2024 12/10/2020, 11/12/2020 Pap Smear 10/20/2024 DTAP/TDAP/TD VACCINES (7 - Td or Tdap) 11/20/2024 11/20/2014, 10/23/2008, 01/20/2005, Additional history exists Influenza Vaccine (#1) 2025 03/31/2020 Pneumococcal Vaccine: 0-49 Years Aged Out No longer eligible based on patient's age to complete this topic Insurance [employer] [id number] BLUE CROSS/BLUE SHIELD
--- OUTSIDE RECORDS SUMMARY | 2025-02-05 11:15 | XMS_ITS | Encounter Summary ---
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) Bebo Klein MD [address] [facility] [address] [address] Phone: tel: fax: Referral ID Status Reason Start Date Expiration Date V isits Requested Visits Authorized [id number] Closed Specialty Services Required 06/30/2023 12/29/2024 1 1 Encounter Details Date Type Department Care Team (Latest Contact Info) Description 06/30/2023 [facility] [address] [place] [address] Bebo Klein MD [facility] [address] [address] Chiari malformation type I (CMS/HCC) (Primary Dx); [...] (CMS/HCC) documented in this encounter Care Teams Chief Concierge Relationship Specialty Start Date End Date Per [place], [place] [address] PCP - General 02/17/21 documented as of this encounter
--- OUTSIDE RECORDS SUMMARY | 2025-02-05 11:15 | XMS_ITS | Clinical Summary ---
Author Organization [facility] Address [address] [place] [address] Care Team Providers Care Supervisor Slashing Department Name Role Phone Per Patient, None Primary [...] 06/22/2017 MMR 11/03/2007,01/20/2005 Meningococcal MCV4, Unspecified 11/20/2014 [employer] COVID-19 Vac cine (Purple Cap) 12+ 12/10/2020,11/12/2020 [...] SDOH Screenings 10/20/2021 [facility]-Adult SDOH Screenings 10/20/2021 [id number] Vaccine (3 - season) 2024 12/10/2020, 11/12/2020 [...] BORJA ANTHEM ANKIT BORJA ANTHEM Care Teams Supervisor Slashing Department Relationship Specialty Start Date End Date Per [place], [place] [address] PCP - General 02/17/21
--- OUTSIDE RECORDS SUMMARY | 2025-02-05 11:15 | XMS_ITS | Clinical Summary ---
Author Organization [facility] Address [address] [address] Phone Care Team Providers Care Milk Sampler Name Role Phone Unavailable Primary Care Provider [...] azelastine (ASTELIN) 137 mcg (0.1 %) Nasl [place], Non-Aerosol SPRAY 1 TO 2 SPRAYS IN EACH NOSTRIL TWICE DAILY NEEDED Active levocetirizine (XYZAL) 5 mg Oral Tablet Take 5 mg by mouth daily. Active fluticasone propionate (FLONASE) 50 mcg/actuation Nasl [place], Suspension 2 Sprays in each nostril daily. [...]
--- OUTSIDE RECORDS SUMMARY | 2025-02-05 11:15 | XMS_ITS | Referral Summary ---
Author Organization [facility] ([place], [place], [place], [place]) Address [address] [place] [address] Care Team Providers Care Electromechanical Assembler Name Role Phone Unavailable Primary Care Provider Unavailabl e Encounters Date Type Department Care Team Description 02/05/2025 Outside Orders [facility] Neurology [address] [facility] [address] [place] [address] Marine [place]ett Seizure (HCC) (Primary Dx) from Last 3 [...] Info) Description 02/07/2025 9:00 AM EDT Appointment [facility] Neurodiagn[facility] Services [address] [place] [id number] Insurance AN[place]IT [employer]JA [id number] BLUE CROSS/BLUE SHIELD
--- OUTSIDE RECORDS SUMMARY | 2025-02-05 11:15 | XMS_ITS | Clinical Summary ---
Author Organization [facility] Address [address] [place] [id number] Care Team Providers Care Dye Tub Tender Name Role Phone Bebo Bauer M.D. Primary Care Provider [phone] Source Comments [facility] is fully rolled out with thefollowing exceptions:[facility]erg[facility] Active Allergy Reactions Criticality Noted Date Comments Cefaclor Monohydrate Hyperactive 06/01/2016 Lactose Intolerance 01/12/2018 Medications montelukast (SINGULAIR) 5 MG chewable tablet Chew 1 time a day. Active budesonide-formote rol (SYMBICORT) 160-4.5 MCG/ACT inhaler Take 2 Puffs by inhalation 2 times a day. Active albuterol 90 mcg/act inhaler Acti ve azelastine (ASTELIN) 0.1 % nasal sprayIndications:C hiari malformation type I Active zonisamide (ZONEGRAN) 100 MG capsule Take 3 Caps (300 mg total) by mouth 1 time a day. 270 Cap 8 Active clonazePAM (KlonoPIN) 2 MG disintegrating tabletIndications: Epilepsy undetermined as to focal or generalized Place one pill (2 mg) in between cheek and gum and gently massage for GTC seizures > 5 minutes. Medication will be absorbed and does not need to be swallowed. 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 06/22/2017 Chronic daily headache 06/22/2017 Obesity 09/30/2016 Headache 09/30/2016 Snoring 09/30/2016 Chiari malformation type I 09/30/2016 Epilepsy with both generalized and focal feature s 06/23/2016 Immunizations Immunization Administration Dates Next Due Influenza Vaccine 0.5 mL - f or patients 6 months and older 06/22/2017 Family History Medical History Relation Name Comments Auto Imm Disease Maternal Grandmother Heart Disease Mother Relation Name Status Comments Father Alive Maternal Grandmother Mother Alive Social History Tobacco Use Types Packs/Day Years Used Date Smoking Tobacco: Never Smokeless Tobacco: Never Intimate Partner Violence Answer Date R ecorded If you are in a relationship , do you feel safe in that relationship? Yes 12/21/2017 Safe in relationship? (18 and older) Not on file 12/21/2017 Financial Resource Strain Answer Date R ecorded Financial benefits problems Not on file 09/26 Trouble paying for things you need Not on file 10/20/2022 Trouble paying for things you need (Other) Not o n file 10/20/2022 Safety and Environment Answer Date Hakan rded Do you have any concerns of physical abuse, sexual abuse, or neglect of your child? No 12/21/2017 Is an adult hurting you or your family? No 12/21/2017 Has someone ever touched you in a sexual way that was not ok with you? No 12/21/2017 Someone hurting you or family (18 and older) Not on file 12/21/2017 Historical abuse worry Not on file 8 If you have firearms in the home, are they all in locked storage AND unloaded? Not on file 12/21/2017 Comments Unknown Sex and Gender Information Value Date Recorded Sex Assigned at Not on file Legal Sex Female 11:32 AM EST Gender Identity Not on file Sexual Orientation Not on file Last Filed Vital Signs Vital Sign Reading Time Taken Comments Blood Pressure 112/73 01/12/2018 3:49 PM EDT Pulse 90 01/12/2018 3:53 PM EDT Temperature 36.5 C (97.7 F) 01/12/2018 3:37 PM EDT Respiratory Rate 24 01/12/2018 3:37 PM EDT Oxygen Saturation 99% 01/12/2018 3:53 PM EDT Inhaled Oxygen Concentration - - Weight 102.5 kg (225 lb 15.5 oz) 01/12/2018 2:06 PM EDT Height 164.6 cm (5' 4.8 ) 12/21/2017 12 :38 PM EDT Body Mass Index - - Plan of Treatment Health Maintenance Due Date Last Done Comments MMR IMMUNIZATION (1 of 1 - Standard series) 10/20/2004 DTAP/Tdap/Td IMMUNIZATION (1 - Tdap) 10/20/2010 VARICELLA IMMUNIZATION (1 of 2 - 13+ 2-dose series) 10/20/2016 HPV IMMUNIZATION (1 - 3-dose series) 10/20/2018 MENINGOCOCCAL B VACCINE (1 o f 2 - Standard) 2019 HEPATITIS B IMMUNIZATION (1 of 3 - 19+ 3-dose series) 10/20/2022 COVID-19 Vaccine (1 - 2023-2 5 season) 2024 AMB SEASONAL FLU VACCINE (#1) 02/25/2025 06/22/2017 HIB IMMUNIZATION Aged Out No longer e ligible based on patient's age to complete this topic IPV IMMUNIZATION Aged Out No longer e ligible based on patient's age to complete this topic MCV4 IMMUNIZATION Aged Out No longer eligible based on patient's age to complete this topic PNEUMOCOCCAL IMMUNIZATION Aged Out No longer eligible based on patient's age to complete this topic Respiratory Syncytial Virus (RSV) <20mo Aged Out No longer eligible b ased on patient's age to complete this topic Insurance [facility] [employer] [place] [id number] TIA FRANCO NON-TRADITIONAL Care Teams Dye Tub Tender Relationship Specialty Start Date End Date Bbeo Bauer M.D. [address] [facility], [facility] [address] PCP - General 05/19/16
== END 2025-02-05 23:59 | disposition home or self-care (01) ==
LOC: LAB 11:12
PROVIDERS: PCP Internal Medicine Adolescent Medicine; Visit Provider Specialist
DX: R56.9 Unspecified convulsions (principal)
CPT/HCPCS: 36415; 80175